=== PATIENT | male | born 1980 | race Caucasian/White ===

== ENCOUNTER 2022-05-07 14:57 | Outpatient (RCR) | payer BC | END 2022-05-09 | disposition home or self-care (01) | PROVIDERS: ATTEND Nurse Practitioner Family | DX: M75.01 Adhesive capsulitis of right shoulder (principal); M25.511 Pain in right shoulder; G89.29 Other chronic pain ==

== ENCOUNTER 2022-06-08 13:56 | Outpatient (RCR) | payer BC | END 2022-06-09 | disposition home or self-care (01) | PROVIDERS: ATTEND Nurse Practitioner Family | DX: M75.01 Adhesive capsulitis of right shoulder (principal); M25.511 Pain in right shoulder; G89.29 Other chronic pain ==

== ENCOUNTER 2022-06-12 08:50 | Outpatient (RCR) | payer BC | END 2022-07-09 09:30 | disposition home or self-care (01) | PROVIDERS: ATTEND Nurse Practitioner Family | DX: M75.01 Adhesive capsulitis of right shoulder (principal) ==

== ENCOUNTER 2022-08-06 15:22 | Outpatient (RCR) | payer BC | END 2022-08-07 | disposition home or self-care (01) | PROVIDERS: ATTEND Orthopaedic Surgery | DX: M75.02 Adhesive capsulitis of left shoulder (principal) ==

== ENCOUNTER → 2022-09-07 | Outpatient (RCR) | payer BC | END | disposition home or self-care (01) | PROVIDERS: ATTEND Orthopaedic Surgery | DX: M75.01 Adhesive capsulitis of right shoulder (principal); R73.03 Prediabetes ==

== ENCOUNTER 2022-10-05 09:59 | Outpatient (RCR) | payer BC | END 2022-10-07 | disposition home or self-care (01) | PROVIDERS: ATTEND Orthopaedic Surgery | DX: M75.01 Adhesive capsulitis of right shoulder (principal); R73.03 Prediabetes ==

== ENCOUNTER 2022-11-26 08:29 | Outpatient (RCR) | payer BC | END 2022-12-07 | disposition home or self-care (01) | PROVIDERS: ATTEND Orthopaedic Surgery | DX: M75.01 Adhesive capsulitis of right shoulder (principal); R73.03 Prediabetes ==

== ENCOUNTER 2022-12-26 11:15 | Outpatient (RCR) | payer BC | END 2023-01-07 | disposition home or self-care (01) | PROVIDERS: ATTEND Orthopaedic Surgery | DX: M75.01 Adhesive capsulitis of right shoulder (principal); R73.03 Prediabetes ==

== ENCOUNTER 2023-01-09 11:16 | Outpatient (RCR) | payer BC | END 2023-01-09 12:15 | disposition home or self-care (01) | PROVIDERS: ATTEND Orthopaedic Surgery | DX: M75.01 Adhesive capsulitis of right shoulder (principal); R73.03 Prediabetes; Z98.890 Other specified postprocedural states ==